=== PATIENT | male | born 1995 | race Caucasian/White ===

== ENCOUNTER 2019-08-07 21:55 | Emergency (ER) | payer BC ==
[~2019-08-07] VITALS: Ht 172.7 cm; Wt 100.2 kg
[2019-08-07 22:00] VITALS: Ht 172.7 cm; Wt 100.2 kg
[2019-08-08 00:54] VITALS: BP 127/69
== END 2019-08-08 00:54 | disposition home or self-care (01) ==
LOC: ED 21:55
DX: S61.412A Laceration without foreign body of left hand, initial encounter (principal); W26.8XXA Contact with other sharp object(s), not elsewhere classified, initial encounter; Y93.89 Activity, other specified; Y92.89 Other specified places as the place of occurrence of the external cause; Y99.8 Other external cause status
CPT/HCPCS: J2001

== ENCOUNTER 2019-08-16 17:31 | Emergency (ER) | payer BC ==
[~2019-08-16] VITALS: Ht 172.7 cm; Wt 98.9 kg
[2019-08-16 17:55] VITALS: BP 155/88; Ht 172.7 cm; Wt 98.9 kg
== END 2019-08-16 18:56 | disposition home or self-care (01) ==
LOC: ED 17:31
DX: Z48.01 Encounter for change or removal of surgical wound dressing (principal)